=== PATIENT | male | born 1960 | race Caucasian/White ===

== ENCOUNTER → 2019-05-30 | Day surgery (SDC) | payer OTHER ==
[2019-05-28 15:30] LABS: BASOPHILS # (AUTO) 0.1 (0.0-0.1); EOSINOPHILS # (AUTO) 0.1 (0.0-0.4); EOSINOPHILS % 1.4 % (0.0-6.0); HEMATOCRIT 44.1 % (38.2-49.6); HEMOGLOBIN 15.3 g/dL (14.0-18.0); LYMPHOCYTES # (AUTO) 2.8 (1.0-3.2); LYMPHOCYTES % 37.9 % (18.0-39.1); MEAN CORPUSCULAR HEMOGLOBIN 30.4 pg (28-32); MEAN CORPUSCULAR HGB CONC 34.7 g/dL (31-35); MEAN CORPUSCULAR VOLUME 87.5 fL (81-99); MONOCYTES # (AUTO) 0.5 (0.2-0.8); MONOCYTES % 7.4 % (4.4-11.3); NEUTROPHILS # (AUTO) 3.8 (2.1-6.9); PLATELET COUNT 260 x10e3/uL (140-360); RED BLOOD COUNT 5.04 x10e6/uL (4.3-5.7); RED CELL DISTRIBUTION WIDTH 12.5 % (11.7-14.4)
[2019-05-28 15:50] LABS: ALANINE AMINOTRANSFERASE 32 IU/L (0-55); ALBUMIN 4.2 g/dL (3.5-5.0); ALBUMIN/GLOBULIN RATIO 1.3 (0.8-2.0); ALKALINE PHOSPHATASE 80 IU/L (40-150); BLOOD UREA NITROGEN 11 mg/dL (7-26); BUN/CREATININE RATIO 12 (6-25); CALCIUM 9.1 mg/dL (8.4-10.2); CARBON DIOXIDE 22 mmol/L (22-29); CHLORIDE 105 mmol/L (98-107); CREATININE, SERUM 0.92 mg/dL (0.72-1.25); EST GLOMERULAR FILTRATION RATE > 60 ML/MIN (60-); GLUCOSE 87 mg/dL (74-118); SODIUM 138 mmol/L (136-145)
[~2019-05-30] MED LIST: ACETAMINOPHEN 1000 MG/100 ML 100 ML IV ONE; B&O 60MG R/S 60 MG SUPP PR ONE; BACTRIM DS TAB1 EACH PO; CEFAZOLIN SOD 1 GM/NS 50ML 100 ML IV ONE; DEXAMETHASONE SOD PHOS INJ 4 MG/ML VIAL ONE; FENTANYL CITRATE/PF 100MCG/2 ML INJ ONE; IOPAMIDOL 610MG/1ML 300 MG/ML VIAL IV ONE; LIDOCAINE HCL 2% LOCAL INJ 5 ML SDV VIAL INJ ONE; MIDAZOLAM HCL 2 MG/2 ML VIAL ONE; ONDANSETRON HCL INJ 2MG/ML 2ML 2 MG/ML VIAL ONE; PROPOFOL IV EMULSION 10 MG/ML 20 ML VIAL ONE; SEVOFLURANE INHAL SOLN 250 ML PEN BTL ONE
[2019-05-30 15:40] VITALS: BP 123/76
--- NOTE | 2019-05-30 17:00 | Operative Report ---
DATE OF PROCEDURE: 05/30/2019 SURGEON: Konstantin Eubanks MD PREOPERATIVE DIAGNOSIS: Severe membranous urethral stricture, recurrent. POSTOPERATIVE DIAGNOSIS: Severe membranous urethral stricture, recurrent. OPERATION PERFORMED: Urethrogram, balloon dilatation of severe urethral stricture, cystourethroscopy, and dilatation of membranous urethral stricture severe. ANESTHESIOLOGIST: Staff. ANESTHESIA: General. FINDINGS: Retrograde urethrogram showed severe urethral stricture at the level of the bulbar membranous. This was approximately 1 cm in length by retrograde urethrogram. Balloon dilatation was performed appropriately and satisfactorily. Dilation was done with Vidal sounds to size 28 and a 22-Urdu Bourne catheter was then left in the bladder. PROCEDURE IN DETAIL: With the patient under satisfactory general anesthesia, the patient was placed in the supine position on the operating table. Legs were placed on stirrups. Genitalia was then prepped with Betadine simple solution and draped in the usual manner. Retrograde urethrogram was done by injecting contrast media through the urethral meatus filling up the urethra and the defect was immediately identified. After that, cystoscopy was performed. Pinpoint urethral stricture was identified and an extra stiff guidewire was introduced under fluoroscopy all the way into the bladder. At that point, balloon dilatation was performed. Once that was done, then the cystoscope was used again. The stricture was approximately 1 cm per urethrogram. On cystoscopy, it was tight, prostate was opened. Bladder showed no tumor, stones, foreign objects. Trigone was normal, there was minimal trabeculation. At this point, instruments were removed. Dilatation of the urethra was done to size 28. At that point, the cystoscopy was performed again. It was now wide open and a 22-Urdu Bourne catheter was passed per urethra into the bladder performing a cystogram, there was no extravasation anywhere. At this point, the balloon was inflated and left in place. DISCHARGE INSTRUCTIONS: The patient was given Keflex to take b.i.d., tramadol for pain. He was given a leg bag and large bag. I discussed findings with the and gave her pictures of the findings. Of course, we again reiterated the possibility of recurrences particularly scar tissue like strictures. He will be seen in the office on Tuesday to remove Bourne catheter and give him a voiding trial. MD ARIAN Knott/SAPPHIREL /[id number]
--- NOTE | 2019-06-01 08:16 | Diagnostic Imaging Report ---
Examination: Retrograde urethrogram by urology service. Clinical indication: Urethral stricture Fluoroscopy time: 0.05 minutes Air Kerma: 0.39 mGy Findings: Contrast material was injected through the urethra in a retrograde fashion without a radiologist present. Frontal images show a short segment stricture probably of the membranous segment of the posterior urethra. Subsequent images show passage of a guidewire and small caliber catheter into the opacified urinary bladder, followed by placement of a balloon retention bladder catheter. Impression: Short segment stricture of the posterior urethra, suboptimally evaluated on AP images. Final image shows a balloon retention catheter within the urinary bladder. Refer to operative report for full description of the procedure. Signed by: Dr. Cisco King M.D. on 06/01/2019 8:12 AM
== END | disposition home or self-care (01) ==
LOC: OR 13:02
PROVIDERS: ATTEND Urology
DX: N35.813 Other membranous urethral stricture, male (principal); Z01.812 Encounter for preprocedural laboratory examination; Z01.810 Encounter for preprocedural cardiovascular examination; Z87.891 Personal history of nicotine dependence
CPT/HCPCS: 36415; 52281; 74450; 80053; 85025; 87086; 93005; C1758; J0131; J0690; J1100; J2001; J2250; J2405; J2704; Q9967; C1726; J3010